=== PATIENT | female | born 1955 | race Caucasian/White ===

== ENCOUNTER → 2022-03-17 10:00 | Outpatient (BNVA) | payer MEDICARE, SELFPAY | PROVIDERS: Visit Provider Family Medicine | DX: E78.00 Pure hypercholesterolemia, unspecified (principal); E55.9 Vitamin D deficiency, unspecified; L65.9 Nonscarring hair loss, unspecified; Z78.0 Asymptomatic menopausal state; R19.7 Diarrhea, unspecified; Z87.410 Personal history of cervical dysplasia | CPT/HCPCS: 80053; 80061; 82306; 84443; 85025 ==

== ENCOUNTER → 2022-03-20 12:15 | Outpatient (BNVA) | payer MEDICARE, SELFPAY | PROVIDERS: Visit Provider Family Medicine | DX: E78.00 Pure hypercholesterolemia, unspecified (principal); E55.9 Vitamin D deficiency, unspecified; L65.9 Nonscarring hair loss, unspecified; Z78.0 Asymptomatic menopausal state; R19.7 Diarrhea, unspecified; B00.9 Herpesviral infection, unspecified; Z12.31 Encounter for screening mammogram for malignant neoplasm of breast; L57.0 Actinic keratosis; Z87.410 Personal history of cervical dysplasia | CPT/HCPCS: 87506 ==

== ENCOUNTER 2022-04-14 13:30 | Outpatient (CLI) | payer MEDICARE, SELFPAY ==
--- NOTE | 2022-04-14 13:56 | MM_ITS ---
WS: [id number] VIEWS: MLO and CC views both breasts. 3D digital tomosynthesis is also included in this exam. Comparison made with prior exam of 01/09/2016, 01/17/2018, 01/15/2019, 03/04/2020, 03/10/2021.. Findings: There was no sign of mass, architectural distortion or suspicious calcification in either breast. Sc attered fibroglandular densities MM/[place] [id number] Impression: BI-RADS: 2-Benign FOLLOW-UP: 1 Year Follow-up This mammogram was also analyzed by the Computer Aided Detection System [employer].
--- NOTE | 2022-04-14 14:35 | XR_ITS ---
WS: [id number] SCREENING DEXA SCAN [employer] CLINICAL INFORMATION: osteopenia COMPARISON: None. FINDINGS: The L1-L4 bone mineral density measures 1.003 g/cm2. This corresponds to a T score score of -1.5 and Z score of 0.0. Left femoral neck bone mineral density measures 0.777 g/cm2. This corresponds to a T score of -1.8 an d Z score of -0.7. Right femoral neck bone mineral density measures 0.791 g/cm2. This corresponds to a T score -1.7of an d Z score of -0.6. Mean femoral neck bone mineral density measures 0.784 g/cm2. This corresponds to a T score of -1.8 an d Z score of -0.7. XR/XR DEXA axial skeleton* [id number] IMPRESSION: Osteopenia lumbar spine. Osteopenia femoral necks. Patient's FRAX calculated 10 year probability for major osteoporotic fracture i s 22.6 % and osteoporotic hip fracture is 2.6%.
== END 2022-04-14 13:31 | disposition home or self-care (01) ==
LOC: RAD 13:31
PROVIDERS: Visit Provider Family Medicine
DX: Z12.31 Encounter for screening mammogram for malignant neoplasm of breast (principal); M85.88 Other specified disorders of bone density and structure, other site; Z78.0 Asymptomatic menopausal state
CPT/HCPCS: 77063; 77067; 77080

== ENCOUNTER → 2022-05-19 15:28 | Outpatient (BNVA) | payer MEDICARE, SELFPAY | PROVIDERS: Visit Provider Nurse Practitioner Women's Health | DX: Z01.419 Encounter for gynecological examination (general) (routine) without abnormal findings (principal); Z87.42 Personal history of other diseases of the female genital tract; Z91.89 Other specified personal risk factors, not elsewhere classified; M85.80 Other specified disorders of bone density and structure, unspecified site | CPT/HCPCS: 87624 ==

== ENCOUNTER → 2023-03-10 08:51 | Outpatient (BNVA) | payer MEDICARE, SELFPAY | PROVIDERS: Visit Provider Family Medicine | DX: E55.9 Vitamin D deficiency, unspecified (principal); E78.00 Pure hypercholesterolemia, unspecified | CPT/HCPCS: 80053; 80061; 82306; 85025 ==

== ENCOUNTER → 2023-03-25 09:10 | Outpatient (BNVA) | payer MEDICARE, SELFPAY | PROVIDERS: Visit Provider Family Medicine | DX: R41.89 Other symptoms and signs involving cognitive functions and awareness (principal); L65.9 Nonscarring hair loss, unspecified; E78.00 Pure hypercholesterolemia, unspecified; M85.89 Other specified disorders of bone density and structure, multiple sites; Z12.31 Encounter for screening mammogram for malignant neoplasm of breast; Z86.010 Personal history of colon polyps | CPT/HCPCS: 82607; 84443 ==

== ENCOUNTER 2023-04-16 08:45 | Outpatient (CLI) | payer MEDICARE, SELFPAY ==
--- NOTE | 2023-04-16 08:58 | MM_ITS ---
WS: [id number] SCREENING DIGITAL TOMOSYNTHESIS MAMMOGRAM WITH CAD HISTORY: screening mammogram COMPARISON: 04/14/2022 and 03/10/2021 Bilateral CC and MLO with tomosynthesis views submitted. Synthetic mammography reviewed. Computer aid ed detection analyzed. Breast composition: There are scattered areas of fibroglandular density. No suspicious masses, microc alcifications or architectural distortion. Benign calcification anterior RIGHT breast. IMPRESSION: MM/[place] [id number] BI-RADS: 2-Benign FOLLOW UP: 1 Year Follow-up
== END 2023-04-16 08:46 | disposition home or self-care (01) ==
LOC: RAD 08:46
PROVIDERS: Visit Provider Family Medicine
DX: Z12.31 Encounter for screening mammogram for malignant neoplasm of breast (principal)
CPT/HCPCS: 77063; 77067

== ENCOUNTER → 2023-06-02 13:42 | Outpatient (BNVA) | payer MEDICARE, SELFPAY | PROVIDERS: PCP Family Medicine; Referring Provider Family Medicine; Visit Provider Surgery | DX: Z12.11 Encounter for screening for malignant neoplasm of colon (principal) | CPT/HCPCS: 99204 ==

== ENCOUNTER 2023-06-16 09:58 | Day surgery (SDC) | payer MEDICARE, SELFPAY ==
[2023-06-16 10:12] VITALS: BP 130/85; PULSE 92; RESP 18; TEMP 36.1; O2SAT 99
[2023-06-16] MEDS: sodium chloride 0.9% 1,000 ML 30 ML IV (10:22)
--- NOTE | 2023-06-16 10:27 | ANES.PREANE2 ---
Pre-Anesthetic Assessment Height/Weight: Height 1.63 m Weight 67.132 kg Temp Pulse Resp BP Pulse Ox O2 Del Method 97.0 F L 92 18 130/85 99 Room Air 06/16/23 10:12 06/16/23 10:12 06/16/23 10:12 06/16/23 10:12 06/16/23 10:12 06/16/23 10:12 Operation Date: 06/16/23 11:00 Proposed Procedures p [id number] colon G0121 screen colon A risk Z12.11(Not Applicable) - Lázaro Khan, DO Was Beta Aleks taken within 24 hours: N/A Was Clonidine taken within 24 hours: N/A Last intake: Intake Last Liquid Date 06/16/23 Last Liquid Time 21:00 Last Solid Date 06/14/23 Last Solid Time 20:00 Last Intake: 22:00 Social No alcohol and No tobacco Exam alert, oriented x 3, clear to auscultation bilaterally and regular rate & rhythm Airway Submandibular: within normal limits Cervical ROM: within normal limits Mallampati: Class I History/ROS No significant history except as noted and No significant complaints Pulmonary None reported CV/HEM high chol None reported Hepatic None reported GI None reported Metabolic None reported Musc/skel None reported Neuropsych None reported Anesthetic Plan ASA status: 2 Anesthesia: MAC Risk of > 500 ml blood loss (7ml/kg in children): Yes, adequate IV access and fluids planned Medications/Allergies Home Medications Medication Instructions Recorded Confirmed Last Taken Type calcium carb-Ca gluc 500 mg 1 tab PO DAILY 03/17/22 06/16/23 06/14/23 History calcium-magnesium ox-Mg gluc 250 mg tablet (Calcium Magnesium) cholecalciferol (vitamin D3) 125 125 mcg PO DAILY 03/17/22 06/14/23 06/14/23 History mcg (5,000 unit) capsule coenzyme Q10 60 mg capsule 60 mg PO DAILY 03/17/22 06/14/23 06/14/23 History gingko 1 cap PO DAILY 03/17/22 06/16/23 06/14/23 History lysine 500 mg tablet 500 mg PO DAILY 03/17/22 06/14/23 06/14/23 History atorvastatin 40 mg tablet 40 mg PO DAILY #90 tabs 03/25/23 06/14/23 06/14/23 Rx estradiol 0.01% (0.1 mg/gram) 1 g vaginal .2-3 times weekly 05/25/23 06/14/23 Unknown Rx vaginal cream (Estrace) #42.5 grams valacyclovir 500 mg tablet 500 mg PO Q12H PRN hsv #60 tabs 05/25/23 06/14/23 2 Weeks Ago Rx ~05/31/23 alprazolam 0.5 mg tablet 0.5 mg PO DAILY PRN Anxiety 06/02/23 06/14/23 06/14/23 History raloxifene 60 mg tablet See Rx Instructions .Route 06/14/23 06/14/23 06/15/23 Rx .COMPLEX #180 tabs Allergies Allergy/AdvReac Type Severity Reaction Status Date / Time venom-wasp Allergy Intermediate rash Verified 06/16/23 10:09 Current Medications Generic Name Dose Route Start Last Admin Trade Name Freq PRN Reason Stop Dose Admin Sodium Chloride 1,000 mls @ 30 mls/hr 06/16/23 10:15 06/16/23 10:22 Sodium Chloride 0.9% IV 06/17/23 10:14 30 mls/hr .Q24H EBER Administration PFSH Anesthesia Medical History No pertinent past medical history neghx: htn,dm,thyroid,dvt/pe PCP: Jennifer Preciado Osteopenia Pure hypercholesterolemia Anxiety disorder Cervical radiculopathy Surgical History History of mandibular surgery Bone graft History of colposcopy (~03/03/11) H/O LEEP (~03/10/11) S/P removal of ovarian cyst (~1991) exploratory lap for endometriosis History of conization of cervix (~1987) in her 30's. Family History Father Stroke Heart disease Hyperchloremia Family/Other Hyperchloremia Paternal side of the family Denies family history of Colon cancer Diabetes Breast cancer Family history of thyroid problem Hypertension Social History Smoking and tobacco/nicotine status: never used tobacco/nicotine Alcohol intake: current Alcohol intake frequency: holidays/special occasions only Data Anesthesia Cardiac Studies: No Data to Display
--- NOTE | 2023-06-16 10:30 | W.PM.OPSUD ---
Surgery/Procedure H&P Update DATE OF PROCEDURE: June 16, 2023 DATE H&P PERFORMED: 06/02/23 H&P UPDATE INFORMATION: I have reviewed H&P completed within last 30 days, I have examined patient prior to procedure and No changes to prior documentation PLANNED PROCEDURE: Operation Date: 06/16/23 11:00 Proposed Procedures p [id number] colon G0121 screen colon A risk Z12.11(Not Applicable) - Lázaro Khan, DO
[2023-06-16 10:51] VITALS: BP 111/80; PULSE 84; RESP 18; TEMP 36.3; O2SAT 97
[2023-06-16 11:06] VITALS: BP 123/84; PULSE 75; RESP 18; O2SAT 100
--- NOTE | 2023-06-16 11:20 | ANE.PACU2 ---
Inpatient post-anesthesia follow up: Airway intact: Yes Vital signs: Temperature 97.3 F Pulse Rate 75 Respiratory Rate 18 Blood Pressure 123/84 Pulse Oximetry 100 Oxygen Delivery Me thod Room Air Oxygen Flow Rate Fraction of Inspir ed Oxygen Hydration adequate: Yes Nausea and vomiting: No Pain level: 1 Mental status: Baseline
== END 2023-06-16 11:20 | disposition home or self-care (01) ==
PROVIDERS: PCP Family Medicine; Visit Provider Surgery
PROC: 0DJD8ZZ Inspection of Lower Intestinal Tract, Via Natural or Artificial Opening Endoscopic (ICD-10-PCS; CPT 45378; principal; 2023-06-16 11:00)
DX: Z12.11 Encounter for screening for malignant neoplasm of colon (principal); Z86.010 Personal history of colon polyps
CPT/HCPCS: G0121; J2704; J7030

== ENCOUNTER → 2023-12-14 08:40 | Outpatient (BNVA) | payer MEDICARE, SELFPAY | PROVIDERS: PCP Family Medicine; Visit Provider Family Medicine | DX: E55.9 Vitamin D deficiency, unspecified (principal); E78.00 Pure hypercholesterolemia, unspecified | CPT/HCPCS: 80053; 80061; 82306 ==

== ENCOUNTER 2024-05-17 08:46 | Outpatient (CLI) | payer MEDICARE, SELFPAY ==
--- NOTE | 2024-05-17 09:00 | MM_ITS ---
WS: [id number] BILATERAL SCREENING DIGITAL TOMOSYNTHESIS MAMMOGRAM WITH CAD HISTORY: screening COMPARISON: 04/16/2023, 04/14/2022 Bilateral CC and MLO views with tomosynthesis and synthetic mammography submitted. Computer aided det ection analyzed. Breast composition: There are scattered areas of fibroglandular density. No suspicious masses, microc alcifications or architectural distortion. Coarse calcification anterior RIGHT breast. MM/MM scr BI tomosynthesis [id number] IMPRESSION: BI-RADS: 2 - Benign. FOLLOW UP: 1 Year Follow-up
== END 2024-05-17 08:47 | disposition home or self-care (01) ==
LOC: RAD 08:47
PROVIDERS: PCP Family Medicine; Visit Provider Family Medicine
DX: Z12.31 Encounter for screening mammogram for malignant neoplasm of breast (principal); R92.323 Mammographic fibroglandular density, bilateral breasts; R92.1 Mammographic calcification found on diagnostic imaging of breast
CPT/HCPCS: 77063; 77067

== ENCOUNTER → 2024-05-30 09:07 | Outpatient (BNVA) | payer MEDICARE, SELFPAY | PROVIDERS: PCP Family Medicine; Visit Provider Nurse Practitioner Women's Health | DX: R87.612 Low grade squamous intraepithelial lesion on cytologic smear of cervix (LGSIL) (principal); Z91.89 Other specified personal risk factors, not elsewhere classified; M85.80 Other specified disorders of bone density and structure, unspecified site; M85.89 Other specified disorders of bone density and structure, multiple sites; Z78.0 Asymptomatic menopausal state; Z01.419 Encounter for gynecological examination (general) (routine) without abnormal findings; B00.9 Herpesviral infection, unspecified; N95.8 Other specified menopausal and perimenopausal disorders | CPT/HCPCS: 87624 ==

== ENCOUNTER 2024-06-09 14:40 | Outpatient (CLI) | payer MEDICARE, SELFPAY ==
--- NOTE | 2024-06-09 15:30 | XR_ITS ---
WS: [id number] DEXA (DUAL ENERGY X-RAY ABSORPTIOMETRY) Bone mineral density was performed using a Urb[employer] machine. HISTORY: M85.89 - Other specified disorders of bone density and st... COMPARISON: 04/14/2022 Lumbar spine BMD (L1-L4): 1.025 g/cm2 T score: -1.3 Z score: 0.1 Total hip BMD: Left: 0.774 g/cm2. T score: -1.9 Z score: -0.7 Right: 0.792 g/cm2. T score: -1.7 Z score: -0.5 10 year probability of a major osteoporotic fracture is 22.2%. Compared to the prior study from 04/14/2022. Lumbar spine bone mineral density has increased by 2.2%. Bilateral hips bone mineral density has decreased by 0.1%. XR/XR DEXA axial skeleton* [id number] IMPRESSION: OSTEOPENIA based upon the WHO classification for females. Significant increase in bone mineral density of the lumbar spine since the prio r study. No change of bone mineral density in the hips.
== END 2024-06-09 14:41 | disposition home or self-care (01) ==
PROVIDERS: PCP Family Medicine; Visit Provider Nurse Practitioner Women's Health
DX: M85.89 Other specified disorders of bone density and structure, multiple sites (principal); Z78.0 Asymptomatic menopausal state; M85.80 Other specified disorders of bone density and structure, unspecified site
CPT/HCPCS: 77080

== ENCOUNTER → 2025-02-09 14:40 | Outpatient (BNVA) | payer MEDICARE, SELFPAY | PROVIDERS: PCP Family Medicine; Visit Provider Family Medicine | DX: E55.9 Vitamin D deficiency, unspecified (principal); Z13.6 Encounter for screening for cardiovascular disorders | CPT/HCPCS: 80053; 80061; 82306; 84439; 84443; 85025 ==